=== PATIENT | male | born 1960 | race Caucasian/White ===

== ENCOUNTER 2020-07-20 04:05 | Emergency (ER) | payer SELFPAY ==
[2020-07-20 04:35] LABS: #Basophils 0.1 thou/uL (0.0-0.2); #Eosinphils 0.2 thou/uL (0.0-0.7); #Lymphocytes 2.8 thou/uL (1.20-3.40); #Monocytes 0.9 thou/uL (0.11-0.59); #Neutrophils 6.7 thou/uL (1.40-6.50); %Basophils 0.7 % (0.0-1.0); %Eosinophils 1.5 % (0.0-10.0); %Lymphocytes 26.5 % (21.0-51.0); %Monocytes 8.4 % (0.0-10.0); Hemoglobin 11.3 g/dL (14.0-18.0); Mean Corpuscular HGB CONC 32.8 g/dL (32.0-36.0); Mean Corpuscular Hemoglobin 30.5 pg (27.0-31.0); Mean Platelet Volume 7.5 fL (7.4-10.4); Platelet Count 317 thou/uL (130-400); RBC Distribution Width 13.3 % (11.5-14.5); Red Blood Cell (RBC) Count 3.71 mill/uL (4.70-6.10); White Blood Cell (WBC) Count 10.6 thou/uL (4.8-10.8)
[2020-07-20 05:06] LABS: ALT (SGPT) 74 U/L (8-55); AST (SGOT) 26 U/L (5-34); Albumin 4.1 g/dL (3.5-5.0); Alkaline Phosphatase 122 U/L (40-110); Anion Gap 21 mmol/L (10-20); BUN (Urea Nitrogen) 39 mg/dL (8.4-25.7); Bilirubin, Total 0.3 mg/dL (0.2-1.2); Calc. Creatinine Clearance 0 mL/min (70-130); Calcium 9.1 mg/dL (7.8-10.44); Carbon Dioxide 19 mmol/L (22-29); Chloride 105 mmol/L (98-107); Estimated GFR-MDRD 31; Globulin 2.3 g/dL (2.4-3.5); Glucose 287 mg/dL (70-105); Potassium 4.2 mmol/L (3.5-5.1); Protein, Total 6.4 g/dL (6.0-8.3); Sodium 141 mmol/L (136-145)
[2020-07-20] MEDS ORDERED: Ondansetron PF 4 MG/2 ML Vial ONE (05:41)
[2020-07-20] MEDS ORDERED: Morphine 4 MG/ML VIAL ONE (05:41)
--- NOTE | 2020-07-20 07:53 | RAD ---
EXAM: 3 views of the left wrist HISTORY: Wrist pain after fall COMPARISON: None FINDINGS: 3 views of the left wrist shows a possible small fracture fragment along the dorsal aspect of the carpal bones. No other fractures or dislocations are seen. Mild dorsal soft tissue swelling is seen. No degenerative changes are present. IMPRESSION: Possible small avulsion fracture of one of the carpal bones as above.
--- NOTE | 2020-07-20 07:53 | RAD ---
EXAM: 3 views of the right shoulder HISTORY: Shoulder pain after fall COMPARISON: None FINDINGS: There is no evidence of acute fracture or dislocation. No degenerative changes are present. No soft tissue swelling is seen. The visualized thorax is unremarkable. IMPRESSION: No evidence of acute osseous abnormality.
--- NOTE | 2020-07-20 07:56 | CT ---
CTA CHEST UTILIZING IV CONTRAST AND 3D REFORMATTED IMAGES AND A PE PROTOCOL: Date: 07/20/2020 INDICATION: Elevated D-Dimer and syncope. COMPARISON: None. FINDINGS: No central or segmental pulmonary embolus is evident. There is dependent atelectasis within both lowe r lobes. No contusion, pleural effusion, or pneumothorax is evident. There are coronary artery calcif ications. No enlarged lymph nodes are evident. Visualized upper abdomen reveals no acute abnormality. No acute fracture or subluxation is evident. There is scattered degenerative change. IMPRESSION: No central or segmental pulmonary embolus. POS: BH
--- NOTE | 2020-07-20 08:07 | CT ---
CT OF THE ABDOMEN AND PELVIS WITH IV CONTRAST: INDICATION: History of syncopal event and fall with right shoulder pain, right wrist pain, and back pain. COMPARISON: None. FINDINGS: Lung bases are clear. No focal hepatic lesion is evident. The pancreas, adrenal glands, and spleen appear within normal limits. Very tiny hypodensity is seen within the right mid kidney likely reflecting a tiny cyst. No hydronep hrosis is evident. There are mild vascular calcifications involving the abdominopelvic vasculature. No free fluid is evident in the pelvis. The bladder, rectum, and perirectal soft tissues are unremar kable-appearing. There is a mild amount of retained stool within the colon with scattered colonic diverticula. There is slightly diminished caliber and wall thickening involving portions of transverse colon and splenic flexure which may be related to an area of peristalsis or under distention. Area of colitis or area of constrictive neoplasm is not entirely excluded. The small bowel is of normal caliber. There is a small umbilical hernia containing an unobstructed loop of small bowel. There is postsurgical change of a posterolateral fusion from L3 through S1 with solid osseous incorpo ration and interbody bone graft in the interbody disk spaces of L5-S1, L4-5, and L3-4. There is adva nced adjacent segment degeneration at L2-3 involving the disk space and facet complex. No acute frac ture is evident. IMPRESSION: 1. No definite acute traumatic injury involving the abdomen and pelvis. 2. Area of wall thickening and narrowing involving the distal transverse colon and splenic flexure m ay reflect sequelae of peristalsis and under distension; however, focal constricting colonic neoplasm versus pericolitis is not excluded. Recommend correlation with the clinical examination. Recommend correlation with patient's history for colon screening. Would recommend appropriate colon screening to exclude the underlying presence of a malignant etiology to this finding. 3. Other chronic findings as above. POS: BH
--- NOTE | 2020-07-20 09:26 | CT ---
PRELIMINARY REPORT/[facility]/EMERGENCY AFTER HOURS PROCEDURE: EXAM: CT Head Without Intravenous Contrast. CLINICAL HISTORY: SYNCOPE; 60M; fell off of stool at work, and hit head; small hematoma; r wrist and shoulder pain, lisa k pain. TECHNIQUE: Axial computed tomography images of the head/brain without intravenous contrast. COMPARISON: None provided. FINDINGS: BRAIN: No acute intraparenchymal hemorrhage. No mass lesion. No CT evidence for acute territorial infarct. N o midline shift or extra-axial collection. VENTRICLES: No hydrocephalus. ORBITS: The orbits are unremarkable. SINUSES AND MASTOIDS: The paranasal sinuses and mastoid air cells are clear. SOFT TISSUES: Right frontal scalp hematoma. No radiopaque foreign body is seen. BONES: No acute skull fracture. IMPRESSION: 1. No acute intracranial abnormality. 2. Right frontal scalp soft tissue hematoma. No underlying fracture ELECTRONICALLY SIGNED BY: Ross Vines DO Jul 20, 2020 5:07:48 AM CDT This report is intended for review by the ordering physician only, in accordance of law. If you recei ve this report in error, please call [facility] at [phone]. FINAL REPORT EMERGENCY AFTER HOURS CT BRAIN WITHOUT CONTRAST: FINDINGS/IMPRESSION: I agree with the findings and impression given in the preliminary report per [facility] physici an. No evidence of acute intracranial abnormality. POS: EAA
--- NOTE | 2020-07-20 09:27 | CT ---
PRELIMINARY REPORT/[facility]/EMERGENCY AFTER HOURS PROCEDURE: EXAM: CT Cervical Spine Without Intravenous Contrast. CLINICAL HISTORY: SYNCOPE; 60M; fell off of stool at work, and hit head; small hematoma; r wrist and shoulder pain, lisa k pain. TECHNIQUE: Axial computed tomography images of the cervical spine without intravenous contrast. Sagittal and cor onal reformations performed. COMPARISON: None provided. FINDINGS: BONES: No acute fracture or focal osseous lesion. Bony alignment is anatomic. DISCS / DEGENERATIVE CHANGES: Multilevel cervical spondylosis most pronounced at C5-6 demonstrated by disc space height loss, endpl ate sclerosis and irregularity and endplate osteophyte formation. There is at least mild spinal laila l stenosis at C3-4 and C5-6 secondary to osteophyte disc complexes. Multilevel facet arthrosis and u ncovertebral joint hypertrophy SOFT TISSUES: No prevertebral soft tissue swelling. No apical pneumothorax. IMPRESSION: 1. No acute cervical spine abnormality. 2. Moderate to severe multilevel cervical spondylosis most pronounced at C5-6. ELECTRONICALLY SIGNED BY: Ross Vines DO Jul 20, 2020 5:09:38 AM CDT This report is intended for review by the ordering physician only, in accordance of law. If you recei ve this report in error, please call [facility] at [phone]. FINAL REPORT EMERGENCY AFTER HOURS CT CERVICAL SPINE WITHOUT CONTRAST: FINDINGS/IMPRESSION: I agree with the findings and impression given in the preliminary report per [facility] physici an. There are degenerative changes of the cervical spine without acute osseous abnormality. POS: EAA
--- NOTE | 2020-07-21 14:08 | EKG ---
Test Reason : Blood Pressure : / mmHG Vent. Rate : 088 BPM Atrial Rate : 088 BPM P-R Int : 136 ms QRS Dur : 090 ms QT Int : 370 ms P-R-T Axes : 057 017 040 degrees QTc Int : 447 ms Normal sinus rhythm Normal ECG Confirmed by KATERYNA COKER ([id number]), marketing editor SANDRITA PETERS ([id number]) on 07/21/2020 2:08:37 PM Referred By: Confirmed By:KATERYNA COKER
== END 2020-07-20 06:33 | disposition home or self-care (01) ==
LOC: ERS 04:05
DX: S09.90XA Unspecified injury of head, initial encounter (principal); S52.502A Unspecified fracture of the lower end of left radius, initial encounter for closed fracture; S52.615A Nondisplaced fracture of left ulna styloid process, initial encounter for closed fracture; R55 Syncope and collapse; I10 Essential (primary) hypertension; E11.9 Type 2 diabetes mellitus without complications; E78.5 Hyperlipidemia, unspecified; E78.00 Pure hypercholesterolemia, unspecified; Z79.84 Long term (current) use of oral hypoglycemic drugs; Z79.899 Other long term (current) drug therapy; W17.89XA Other fall from one level to another, initial encounter
CPT/HCPCS: 36415; 70450; 71275; 72125; 74177; 80053; 84484; 85025; 85379; 93005; 96374; 96375; J2270; J2405